=== PATIENT | male | born 1955 | race Caucasian/White ===

== ENCOUNTER 2020-04-22 11:33 | Outpatient (CLI) | payer MEDICARE ==
[~2020-04-22 11:33] MED LIST: CLIN-97 PO; MUPI22OI30 TP
[2020-04-22 11:59] LABS: BASOPHILS % (AUTO) 0.8 % (0-1); EOSINOPHILS # (AUTO) 0.1 X10'3 (0-0.9); EOSINOPHILS % (AUTO) 2.9 % (0-6); HEMATOCRIT 36.9 % (42.0-52.0); HEMOGLOBIN 12.5 g/dl (14.0-17.9); MEAN CORPUSCULAR HEMOGLOBIN 31.3 PG (27.0-31.0); MEAN CORPUSCULAR HGB CONC 33.8 g/dL (33.0-36.5); MEAN CORPUSCULAR VOLUME 92.8 FL (78-98); MEAN PLATELET VOLUME 6.7 FL (7.4-10.4); MONOCYTES # (AUTO) 0.8 X10'3 (0-0.9); MONOCYTES % (AUTO) 22.1 % (2-12); NEUTROPHILS # (AUTO) 1.8 X10'3 (1.8-7.7); NEUTROPHILS % (AUTO) 48.2 % (42-75); PLATELET COUNT 435 X10'3 (140-440); RED BLOOD COUNT 3.98 X10'6 (4.70-6.10); RED CELL DISTRIBUTION WIDTH 13.1 % (11.5-14.5); WHITE BLOOD COUNT 3.7 X10'3 (4.5-11.0)
[2020-04-22 12:13] LABS: ALANINE AMINOTRANSFERASE 53 U/L (12-78); ALBUMIN 3.8 G/DL (3.4-5.0); ALKALINE PHOSPHATASE 74 IU/L (46-116); ANION GAP 9 (8-16); ASPARTATE AMINO TRANSFERASE 37 U/L (10-37); BILIRUBIN,TOTAL 0.7 MG/DL (0.1-1.0); BLOOD UREA NITROGEN 10 MG/DL (7-18); BUN/CREATININE RATIO 16.1 (5.4-32.0); C-REACTIVE PROTEIN 0.18 MG/DL (0.0-0.5); CHLORIDE 104 MMOL/L (99-107); CREATININE 0.62 MG/DL (0.60-1.10); GLUCOSE 110 MG/DL (70-104); POTASSIUM 4.3 MMOL/L (3.5-5.1); SODIUM 139 MMOL/L (135-145); TOTAL PROTEIN 7.5 G/DL (6.4-8.2); VANCOMYCIN,TROUGH 17.4 UG/ML (6.0-14.0); eGFR > 90 ML/MIN
== END 2020-04-22 23:59 | disposition home or self-care (01) ==
LOC: LAB 11:33
PROVIDERS: ATTEND Internal Medicine
DX: I10 Essential (primary) hypertension (principal); Z51.81 Encounter for therapeutic drug level monitoring; Z79.899 Other long term (current) drug therapy
CPT/HCPCS: 80053; 80202; 85025; 85651; 86140

== ENCOUNTER 2020-09-30 12:30 | Outpatient (CLI) | payer MEDICARE ==
[~2020-09-30] VITALS: Ht 167.6 cm; Wt 72.6 kg
[2020-09-30] MEDS ORDERED: SOFO1TAB PO (14:25)
[2020-09-30] MEDS ORDERED: DOXY-224 PO (14:25)
[2020-09-30 14:27] LABS: BASOPHILS % (AUTO) 0.4 % (0-1); EOSINOPHILS # (AUTO) 0.2 X10'3 (0-0.9); LYMPHOCYTES # (AUTO) 1.1 X10'3 (1.1-4.8); LYMPHOCYTES % (AUTO) 16.2 % (21-51); MEAN CORPUSCULAR HEMOGLOBIN 32.9 PG (27.0-31.0); MEAN CORPUSCULAR HGB CONC 34.1 g/dL (33.0-36.5); MEAN CORPUSCULAR VOLUME 96.5 FL (78-98); MEAN PLATELET VOLUME 6.3 FL (7.4-10.4); MONOCYTES # (AUTO) 0.7 X10'3 (0-0.9); MONOCYTES % (AUTO) 9.3 % (2-12); NEUTROPHILS % (AUTO) 71.1 % (42-75); PRE OP HEMATOCRIT 40.7 % (42.0-52.0); PRE OP HEMOGLOBIN 13.9 g/dL (14.0-17.9); PRE OP PLATELET COUNT 279 X10'3 (140-440); RED BLOOD COUNT 4.21 X10'6 (4.70-6.10); RED CELL DISTRIBUTION WIDTH 13.6 % (11.5-14.5)
[2020-09-30 14:38] LABS: PRE OP PROTIME 10.2 SECONDS (9.0-12.0)
[2020-09-30 14:40] LABS: ALBUMIN 3.9 G/DL (3.4-5.0); ALBUMIN/GLOBULIN RATIO 1.2 (1.1-1.5); ALKALINE PHOSPHATASE 67 IU/L (46-116); BLOOD UREA NITROGEN 8 MG/DL (7-18); BUN/CREATININE RATIO 12.5 (5.4-32.0); CALCIUM 9.1 MG/DL (8.5-10.1); CHLORIDE 96 MMOL/L (99-107); CREATININE 0.64 MG/DL (0.60-1.10); PRE OP ANION GAP 12 (8-16); PRE OP AST 85 U/L (10-37); PRE OP BILIRUB, TOTAL 0.8 MG/DL (0.0-1.0); PRE OP GLUCOSE 99 MG/DL (70-104); PRE OP POTASSIUM 3.6 MMOL/L (3.4-5.1); PRE OP SODIUM 132 MMOL/L (135-145); TOTAL CARBON DIOXIDE 24.4 MMOL/L (24-32); TOTAL PROTEIN 7.1 G/DL (6.4-8.2); eGFR > 90 ML/MIN
[2020-09-30 14:42] LABS: PRE OP ALT 82 U/L (30-65)
[2020-09-30 14:44] LABS: CLARITY,URINE CLEAR (Clear); COLOR,URINE STRAW (Yellow); GLUCOSE, URINE NEGATIVE (Neg); KETONES,URINE NEGATIVE (Neg); LEUKOCYTE ESTERASE ,URINE NEGATIVE (Neg); NITRITES, URINE NEGATIVE (Neg); OCCULT BLOOD,URINE NEGATIVE (Neg); PROTEIN,URINE NEGATIVE (Neg); UROBILINOGEN,URINE 0.2 E.U/dL (0.2-1.0)
[2020-09-30 14:49] LABS: UA COLLECTION TYPE CLN CATCH MIDSTREAM
[2020-10-05] MEDS ORDERED: ringers solution, lacted 1,000 ML IV SCH (05:00)
[2020-10-05] MEDS ORDERED: famotidine 20mg tablet PO ONE (05:30)
[2020-10-05] MEDS ORDERED: cefazolin/dext.iso 2gm/100ml IV ONE (05:30)
[2020-10-11] MEDS ORDERED: PANT-47 PO (11:27)
[2020-10-11] MEDS ORDERED: FURO20TA4 PO (11:27)
== END 2020-09-30 23:59 | disposition home or self-care (01) ==
LOC: LAB 12:30 → EDSTATUS 10-05 13:15
PROVIDERS: ATTEND Surgery
DX: Z01.818 Encounter for other preprocedural examination (principal); K40.91 Unilateral inguinal hernia, without obstruction or gangrene, recurrent; Z20.822 Contact with and (suspected) exposure to COVID-19
CPT/HCPCS: 36415; 80053; 81003; 85025; 85610; 85730; 93005; U0003; U0005; J7120

== ENCOUNTER 2020-10-19 10:58 | Day surgery (SDC) | payer MEDICARE ==
[2020-10-18 11:08] LABS: BASOPHILS % (AUTO) 0.8 % (0-1); EOSINOPHILS # (AUTO) 0.2 X10'3 (0-0.9); EOSINOPHILS % (AUTO) 2.9 % (0-6); LYMPHOCYTES # (AUTO) 1.1 X10'3 (1.1-4.8); LYMPHOCYTES % (AUTO) 20.6 % (21-51); MEAN CORPUSCULAR HEMOGLOBIN 32.1 PG (27.0-31.0); MEAN CORPUSCULAR HGB CONC 33.9 g/dL (33.0-36.5); MEAN CORPUSCULAR VOLUME 94.6 FL (78-98); MEAN PLATELET VOLUME 6.1 FL (7.4-10.4); MONOCYTES # (AUTO) 0.6 X10'3 (0-0.9); MONOCYTES % (AUTO) 10.3 % (2-12); NEUTROPHILS # (AUTO) 3.6 X10'3 (1.8-7.7); NEUTROPHILS % (AUTO) 65.4 % (42-75); PRE OP HEMATOCRIT 27.5 % (42.0-52.0); PRE OP PLATELET COUNT 403 X10'3 (140-440); RED CELL DISTRIBUTION WIDTH 15.6 % (11.5-14.5)
[2020-10-18 11:11] LABS: PRE OP HEMOGLOBIN 9.3 g/dL (14.0-17.9)
[2020-10-18 11:20] LABS: ANION GAP 9 (8-16); BLOOD UREA NITROGEN 9 MG/DL (7-18); BUN/CREATININE RATIO 13.8 (5.4-32.0); CALCIUM 8.7 MG/DL (8.5-10.1); CHLORIDE 105 MMOL/L (99-107); CREATININE 0.65 MG/DL (0.60-1.10); GLUCOSE 107 MG/DL (70-104); POTASSIUM 4.1 MMOL/L (3.5-5.1); SODIUM 140 MMOL/L (135-145); eGFR > 90 ML/MIN
[~2020-10-19] VITALS: Ht 160 cm; Wt 70.3 kg
[2020-10-19] VITALS (12 sets, daily range): BP systolic 134–172; BP diastolic 68–86
[~2020-10-19 10:58] MED LIST changes: -CLIN-97 PO; +DOXY-224 PO; -MUPI22OI30 TP; +PANT40TA54 PO; +SOFO1TAB PO; +cefazolin/dext.iso 2gm/100ml IV ONE; +famotidine 20mg tablet PO ONE; +ringers solution, lacted 1,000 ML IV SCH
[2020-10-19] MEDS ORDERED: sevoflurane 250ml liquid IH ONE (14:00)
[2020-10-19] MEDS ORDERED: BUPIVAcaine/PF 2.5 mg/ml (0.25%) 30ml vial ONE (14:47)
[2020-10-19] MEDS ORDERED: fentaNYL /PF 50mcg/ml 5ml ampule ONE (14:54)
[2020-10-19] MEDS ORDERED: midazolam 1 mg/ML 2ml injection ONE (14:54)
[2020-10-19] MEDS ORDERED: neostigmine methylsulfate 1 MG/ML 10ml vial ONE (15:30)
[2020-10-19] MEDS ORDERED: glycopyrrolate 0.2mg/ml inj ONE (15:30)
[2020-10-19] MEDS ORDERED: propofol inj 20 ML IV ONE (15:30)
[2020-10-19] MEDS ORDERED: ondansetron/PF 4mg/2ml inj ONE (15:30)
[2020-10-19] MEDS ORDERED: LIDOcaine 2% (20mg/ml) 5ml vial ONE (15:30)
[2020-10-19] MEDS ORDERED: dexamethasone sod phosphate 4mg/ml inj. ONE (15:30)
[2020-10-19] MEDS ORDERED: rocuronium 10mg/ml inj IV ONE (15:30)
--- NOTE | 2020-10-19 16:03 | NUR ---
Received from OR via [facility], accompanied by Anesthesiologist DR HAJI and report given by Anesthesiologist. PT DROWSY, DENIES PAIN, ABDOMEN W/3 LAP SITES W/DERMABOND CDI. Addendum: 10/19/20 at 1905 by Tona Bowles RN Amended: Links added.
[2020-10-19] MEDS ORDERED: morphine 2 MG/ML inj. syringe IV PRN (16:15)
[2020-10-19] MEDS ORDERED: ondansetron/PF 4mg/2ml inj IV PRN (16:15)
[2020-10-19] MEDS ORDERED: meperidine/PF 25mg/ml syringe IV PRN ×3 (16:15)
[2020-10-19] MEDS ORDERED: morphine 4 MG/ML inj SYRINge IV PRN (16:15)
[2020-10-19] MEDS ORDERED: proCHLORperazine 10 MG/2 ml inj IV PRN (16:15)
[2020-10-19] MEDS ORDERED: ringers solution, lacted 1,000 ML IV SCH (16:15)
--- NOTE | 2020-10-19 18:03 | NUR ---
PT ABLE TO SAFELY AMBULATE W/HIS CANE, PAIN TOLERABLE, PT VOIDED. D/C INSTRUCTIONS GIVEN AND GONE OVER W/PT AND HIS FAMILY. PT D/CD TO HOME VIA W/C TO PRIVATE VEHICLE W/O INCIDENT. Addendum: 10/19/20 at 1918 by Tona Bowles RN Amended: Links added.
== END 2020-10-19 18:03 | disposition home or self-care (01) ==
LOC: PAS 10:58
PROVIDERS: ATTEND Surgery
DX: K40.90 Unilateral inguinal hernia, without obstruction or gangrene, not specified as recurrent (principal); E11.9 Type 2 diabetes mellitus without complications; K21.9 Gastro-esophageal reflux disease without esophagitis; M86.60 Other chronic osteomyelitis, unspecified site; F17.210 Nicotine dependence, cigarettes, uncomplicated; Z98.890 Other specified postprocedural states; Z20.822 Contact with and (suspected) exposure to COVID-19; Z79.899 Other long term (current) drug therapy; Z86.19 Personal history of other infectious and parasitic diseases; Z86.14 Personal history of Methicillin resistant Staphylococcus aureus infection
CPT/HCPCS: 36415; 49650; 80048; 82948; 85025; 87635; C1781; C9803; J1100; J2001; J2175; J2250; J2405; J2704; J2710; J3010; J3490; A4215; A4618; J7120

== ENCOUNTER 2020-10-25 10:19 | Emergency (ER) | payer MEDICARE ==
[~2020-10-25] VITALS: Ht 170.2 cm; Wt 70.5 kg
[~2020-10-25 10:19] MED LIST changes: -cefazolin/dext.iso 2gm/100ml IV ONE; -famotidine 20mg tablet PO ONE; -ringers solution, lacted 1,000 ML IV SCH
[2020-10-25 11:05] LABS: BASOPHILS % (AUTO) 0.7 % (0-1); EOSINOPHILS # (AUTO) 0.2 X10'3 (0-0.9); HEMATOCRIT 28.1 % (42.0-52.0); HEMOGLOBIN 9.3 g/dl (14.0-17.9); LYMPHOCYTES # (AUTO) 1.1 X10'3 (1.1-4.8); MEAN PLATELET VOLUME 5.9 FL (7.4-10.4); MONOCYTES # (AUTO) 0.4 X10'3 (0-0.9); NEUTROPHILS # (AUTO) 2.1 X10'3 (1.8-7.7); NEUTROPHILS % (AUTO) 54.3 % (42-75); PLATELET COUNT 344 X10'3 (140-440); RED BLOOD COUNT 2.99 X10'6 (4.70-6.10); RED CELL DISTRIBUTION WIDTH 16.1 % (11.5-14.5); WHITE BLOOD COUNT 3.9 X10'3 (4.5-11.0)
[2020-10-25 11:26] LABS: ALANINE AMINOTRANSFERASE 50 U/L (12-78); ALBUMIN 3.3 G/DL (3.4-5.0); ALKALINE PHOSPHATASE 74 IU/L (46-116); ANION GAP 10 (8-16); ASPARTATE AMINO TRANSFERASE 55 U/L (10-37); BILIRUBIN,TOTAL 0.4 MG/DL (0.1-1.0); BLOOD UREA NITROGEN 12 MG/DL (7-18); BUN/CREATININE RATIO 14.3 (5.4-32.0); CALCIUM 8.7 MG/DL (8.5-10.1); CHLORIDE 105 MMOL/L (99-107); CREATININE 0.84 MG/DL (0.60-1.10); GLUCOSE 119 MG/DL (70-104); SODIUM 140 MMOL/L (135-145); TOTAL CARBON DIOXIDE 24.7 MMOL/L (24-32); TOTAL PROTEIN 6.7 G/DL (6.4-8.2); eGFR > 90 ML/MIN
--- NOTE | 2020-10-25 12:15 | NUR ---
VASC AT BEDSIDE DOING EXAM
[2020-10-25 13:13] VITALS: BP 136/70
== END 2020-10-25 13:15 | disposition home or self-care (01) ==
LOC: ER 10:21
DX: M79.89 Other specified soft tissue disorders (principal); D64.9 Anemia, unspecified; E11.9 Type 2 diabetes mellitus without complications; K21.9 Gastro-esophageal reflux disease without esophagitis; G89.29 Other chronic pain; F11.90 Opioid use, unspecified, uncomplicated; M86.9 Osteomyelitis, unspecified; Z86.14 Personal history of Methicillin resistant Staphylococcus aureus infection; Z98.890 Other specified postprocedural states; Z72.89 Other problems related to lifestyle; Z79.2 Long term (current) use of antibiotics; Z79.899 Other long term (current) drug therapy
CPT/HCPCS: 36415; 71045; 80053; 83880; 84484; 85025; 93005; 93971; 99285

== ENCOUNTER 2020-11-16 12:50 | Emergency (ER) | payer MEDICARE ==
[~2020-11-16] VITALS: Ht 172.7 cm; Wt 67.8 kg
[2020-11-16 13:30] VITALS: BP 141/79
[2020-11-16 14:12] LABS: BASOPHILS # (AUTO) 0.1 X10'3 (0-0.2); BASOPHILS % (AUTO) 0.9 % (0-1); EOSINOPHILS # (AUTO) 0.2 X10'3 (0-0.9); EOSINOPHILS % (AUTO) 3.3 % (0-6); HEMATOCRIT 32.8 % (42.0-52.0); LYMPHOCYTES # (AUTO) 1.7 X10'3 (1.1-4.8); LYMPHOCYTES % (AUTO) 29.1 % (21-51); MEAN CORPUSCULAR HEMOGLOBIN 29.1 PG (27.0-31.0); MEAN CORPUSCULAR HGB CONC 33.5 g/dL (33.0-36.5); MEAN PLATELET VOLUME 6.6 FL (7.4-10.4); MONOCYTES # (AUTO) 0.5 X10'3 (0-0.9); MONOCYTES % (AUTO) 7.6 % (2-12); NEUTROPHILS # (AUTO) 3.5 X10'3 (1.8-7.7); NEUTROPHILS % (AUTO) 59.1 % (42-75); PLATELET COUNT 311 X10'3 (140-440); RED BLOOD COUNT 3.77 X10'6 (4.70-6.10); RED CELL DISTRIBUTION WIDTH 16.3 % (11.5-14.5)
[2020-11-16 14:33] LABS: ALANINE AMINOTRANSFERASE 41 U/L (12-78); ALBUMIN 3.8 G/DL (3.4-5.0); ALBUMIN/GLOBULIN RATIO 1.1 (1.1-1.5); ALKALINE PHOSPHATASE 76 IU/L (46-116); ANION GAP 10 (8-16); ASPARTATE AMINO TRANSFERASE 35 U/L (10-37); BILIRUBIN,TOTAL 0.3 MG/DL (0.1-1.0); BLOOD UREA NITROGEN 12 MG/DL (7-18); BUN/CREATININE RATIO 15.4 (5.4-32.0); CALCIUM 8.5 MG/DL (8.5-10.1); CHLORIDE 104 MMOL/L (99-107); CREATININE 0.78 MG/DL (0.60-1.10); GLUCOSE 101 MG/DL (70-104); POTASSIUM 3.7 MMOL/L (3.5-5.1); SODIUM 140 MMOL/L (135-145); TOTAL CARBON DIOXIDE 26.3 MMOL/L (24-32); TOTAL PROTEIN 7.4 G/DL (6.4-8.2); eGFR > 90 ML/MIN
[2020-11-16] MEDS ORDERED: PANT40TA54 PO (18:30)
[2020-11-16 18:38] LABS: BASOPHILS # (AUTO) 0.1 X10'3 (0-0.2); EOSINOPHILS # (AUTO) 0.1 X10'3 (0-0.9); HEMATOCRIT 33.4 % (42.0-52.0); LYMPHOCYTES # (AUTO) 1.3 X10'3 (1.1-4.8); LYMPHOCYTES % (AUTO) 19.6 % (21-51); MEAN CORPUSCULAR HEMOGLOBIN 28.4 PG (27.0-31.0); MEAN CORPUSCULAR HGB CONC 32.8 g/dL (33.0-36.5); MEAN CORPUSCULAR VOLUME 86.4 FL (78-98); MEAN PLATELET VOLUME 6.3 FL (7.4-10.4); MONOCYTES # (AUTO) 0.5 X10'3 (0-0.9); MONOCYTES % (AUTO) 7.3 % (2-12); NEUTROPHILS # (AUTO) 4.6 X10'3 (1.8-7.7); NEUTROPHILS % (AUTO) 70.1 % (42-75); PLATELET COUNT 311 X10'3 (140-440); RED BLOOD COUNT 3.87 X10'6 (4.70-6.10); RED CELL DISTRIBUTION WIDTH 16.2 % (11.5-14.5); WHITE BLOOD COUNT 6.6 X10'3 (4.5-11.0)
== END 2020-11-16 18:50 | disposition home or self-care (01) ==
LOC: ER 12:52
DX: R10.13 Epigastric pain (principal); K26.9 Duodenal ulcer, unspecified as acute or chronic, without hemorrhage or perforation; E11.9 Type 2 diabetes mellitus without complications; G89.29 Other chronic pain; Z71.6 Tobacco abuse counseling; Z86.14 Personal history of Methicillin resistant Staphylococcus aureus infection; Z86.19 Personal history of other infectious and parasitic diseases; Z98.890 Other specified postprocedural states; Z72.89 Other problems related to lifestyle; Z79.2 Long term (current) use of antibiotics; Z79.899 Other long term (current) drug therapy
CPT/HCPCS: 36415; 80053; 85025; 99283; 99406

== ENCOUNTER 2021-05-26 14:42 | Inpatient (IN) | payer MEDICARE ==
[~2021-05-26] VITALS: Ht 170.2 cm; Wt 62.7 kg
[2021-05-26 15:48] LABS: BASOPHILS % (AUTO) 0.7 % (0-1); EOSINOPHILS # (AUTO) 0.1 X10'3 (0-0.9); EOSINOPHILS % (AUTO) 0.9 % (0-6); HEMATOCRIT 26.3 % (42.0-52.0); HEMOGLOBIN 8.3 g/dl (14.0-17.9); LYMPHOCYTES # (AUTO) 1.2 X10'3 (1.1-4.8); LYMPHOCYTES % (AUTO) 21.2 % (21-51); MEAN CORPUSCULAR HEMOGLOBIN 23.1 PG (27.0-31.0); MEAN CORPUSCULAR HGB CONC 31.6 g/dL (33.0-36.5); MEAN CORPUSCULAR VOLUME 73.1 FL (78-98); MEAN PLATELET VOLUME 7.1 FL (7.4-10.4); MONOCYTES # (AUTO) 0.6 X10'3 (0-0.9); MONOCYTES % (AUTO) 10.9 % (2-12); NEUTROPHILS # (AUTO) 3.7 X10'3 (1.8-7.7); NEUTROPHILS % (AUTO) 66.3 % (42-75); PLATELET COUNT 341 X10'3 (140-440); RED CELL DISTRIBUTION WIDTH 21.1 % (11.5-14.5); WHITE BLOOD COUNT 5.6 X10'3 (4.5-11.0)
[2021-05-26 16:35] LABS: ALANINE AMINOTRANSFERASE 84 U/L (12-78); ALBUMIN 3.7 G/DL (3.4-5.0); ALBUMIN/GLOBULIN RATIO 1.2 (1.1-1.5); ALKALINE PHOSPHATASE 118 IU/L (46-116); ANION GAP 14 (8-16); ASPARTATE AMINO TRANSFERASE 103 U/L (10-37); BILIRUBIN,TOTAL 0.5 MG/DL (0.1-1.0); BLOOD UREA NITROGEN 18 MG/DL (7-18); BUN/CREATININE RATIO 19.8 (5.4-32.0); CALCIUM 8.4 MG/DL (8.5-10.1); CHLORIDE 91 MMOL/L (99-107); CREATININE 0.91 MG/DL (0.60-1.10); GLUCOSE 139 MG/DL (70-104); POTASSIUM 4.1 MMOL/L (3.5-5.1); SODIUM 125 MMOL/L (135-145); TOTAL CARBON DIOXIDE 19.7 MMOL/L (24-32); TOTAL PROTEIN 6.9 G/DL (6.4-8.2); eGFR 84 ML/MIN
[2021-05-26 16:39] LABS: PLATELET ESTIMATE NORMAL; POLYCHROMASIA 1+
[2021-05-26 16:40] LABS: ANISOCYTOSIS 3+; BURR CELLS 1+; ELLIPTOCYTES 1+; HYPOCHROMASIA 1+; MICROCYTOSIS 1+; SCHISTOCYTES FEW; TARGET CELLS 1+
[2021-05-26] MEDS ORDERED: furosemide 10 MG/1 ML 10ml inj IV ONE (16:55)
[2021-05-26] MEDS ORDERED: aspirin 81mg tab.chew PO ONE (16:55)
[2021-05-26 16:58] LABS: D-DIMER 2.15 MG/L FEU (0-0.50)
[2021-05-26] MEDS ORDERED: PANT-47 PO (17:01)
[2021-05-26] MEDS ORDERED: magnesium 4gm in 100ml NS 100 ML IV PRN (17:40)
[2021-05-26] MEDS ORDERED: potassium CL 10mEq/100ml bag 100 ML IV PRN (17:40)
[2021-05-26] MEDS ORDERED: ondansetron/PF 4mg/2ml inj IV PRN (17:40)
[2021-05-26] MEDS ORDERED: acetaminophen 325mg tablet PO PRN ×2 (17:40)
[2021-05-26] MEDS ORDERED: potassium Cl 20 mEq SR tablet PO PRN ×2 (17:40)
[2021-05-26] MEDS ORDERED: magnesium Cl slow-release 64mg tablet PO PRN (17:40)
[2021-05-26] MEDS ORDERED: HYDROcodone/acetaminophen 5mg/325mg tablet PO PRN (17:40)
[2021-05-26] MEDS ORDERED: PERFLUTREN PROTEIN-A MICROSPHR (Optison) 0.22 MG/ML 3ML VIAL IV ONE (17:40)
[2021-05-26] MEDS ORDERED: morphine 2 MG/ML inj. syringe IV PRN ×2 (17:40)
[2021-05-26] MEDS ORDERED: magnesium 2GM in 50ml NS 50 ML IV PRN (17:40)
[2021-05-26] MEDS ORDERED: benzonatate 100mg capsule PO PRN (17:40)
[2021-05-26] MEDS ORDERED: mag hydrox/Alum hydrox/simeth 30ml oral suspension PO PRN (17:40)
[2021-05-26] MEDS ORDERED: magnesium hydroxide 30ml (MOM) UD suspension PO PRN (17:40)
[2021-05-26] MEDS: nicotine 14mg patch - 24hr TD SCH (17:55)
[2021-05-26] MEDS: K and/or MAG REPLACEMENT MC SCH (20:00)
[2021-05-26 20:24] LABS: HEMOGLOBIN A1C 5.7 % (4.5-6.2)
--- NOTE | 2021-05-26 20:28 | NUR ---
MEDICATION FOR CT SCAN
[2021-05-26] MEDS: furosemide 40mg/4ml inj IV SCH (20:32)
[2021-05-26 22:00] VITALS: BP 149/93
--- NOTE | 2021-05-26 23:59 | NUR ---
notified of 32 beats of Vtach
[2021-05-27] MEDS ORDERED: furosemide 40mg/4ml inj IV ONE (00:10)
[2021-05-27] MEDS: heparin, porcine 5000 units/ml vial SQ SCH ×3 (00:45→16:00)
[2021-05-27 02:00] VITALS: BP 120/81
[2021-05-27 02:38] LABS: ALANINE AMINOTRANSFERASE 85 U/L (12-78); ALBUMIN 3.6 G/DL (3.4-5.0); ALBUMIN/GLOBULIN RATIO 1.1 (1.1-1.5); ALKALINE PHOSPHATASE 115 IU/L (46-116); ANION GAP 13 (8-16); ASPARTATE AMINO TRANSFERASE 97 U/L (10-37); BILIRUBIN,TOTAL 0.6 MG/DL (0.1-1.0); BLOOD UREA NITROGEN 23 MG/DL (7-18); BUN/CREATININE RATIO 27.4 (5.4-32.0); CALCIUM 8.5 MG/DL (8.5-10.1); CHLORIDE 94 MMOL/L (99-107); CREATININE 0.84 MG/DL (0.60-1.10); GLUCOSE 90 MG/DL (70-104); SODIUM 130 MMOL/L (135-145); TOTAL CARBON DIOXIDE 23.1 MMOL/L (24-32); TOTAL PROTEIN 6.8 G/DL (6.4-8.2); eGFR > 90 ML/MIN
--- NOTE | 2021-05-27 06:54 | NUR ---
Patient in room PCU 3028. I have received report from Jacquelyn SEVILLA and had the opportunity to ask questions and assume patient care.
[2021-05-27 06:57] LABS: BASOPHILS % (AUTO) 0.8 % (0-1); EOSINOPHILS # (AUTO) 0.1 X10'3 (0-0.9); EOSINOPHILS % (AUTO) 1.5 % (0-6); HEMATOCRIT 28.2 % (42.0-52.0); HEMOGLOBIN 8.9 g/dl (14.0-17.9); LYMPHOCYTES % (AUTO) 31.3 % (21-51); MEAN CORPUSCULAR HEMOGLOBIN 22.5 PG (27.0-31.0); MEAN CORPUSCULAR HGB CONC 31.7 g/dL (33.0-36.5); MEAN PLATELET VOLUME 7.4 FL (7.4-10.4); MONOCYTES # (AUTO) 0.9 X10'3 (0-0.9); MONOCYTES % (AUTO) 13.6 % (2-12); NEUTROPHILS # (AUTO) 3.4 X10'3 (1.8-7.7); NEUTROPHILS % (AUTO) 52.8 % (42-75); PLATELET COUNT 362 X10'3 (140-440); RED BLOOD COUNT 3.98 X10'6 (4.70-6.10); RED CELL DISTRIBUTION WIDTH 21.3 % (11.5-14.5); WHITE BLOOD COUNT 6.5 X10'3 (4.5-11.0)
[2021-05-27 07:22] LABS: PHOSPHORUS 3.8 MG/DL (2.3-4.5)
[2021-05-27] MEDS: K and/or MAG REPLACEMENT MC SCH ×2 (08:00→20:00)
[2021-05-27] MEDS ORDERED: lisinopril 5mg tablet PO SCH (08:00)
[2021-05-27 08:01] LABS: ANISOCYTOSIS 3+; HYPOCHROMASIA 1+; MICROCYTOSIS 1+; PLATELET ESTIMATE NORMAL; POIKILOCYTOSIS 1+
[2021-05-27] MEDS: furosemide 40mg/4ml inj IV SCH ×2 (08:27→20:15)
[2021-05-27] MEDS: pantoprazole 40mg Tablet.DR PO SCH (08:28)
[2021-05-27] MEDS: carVEDilol 3.125mg tablet PO SCH ×2 (08:28→20:15)
[2021-05-27] MEDS: nicotine 14mg patch - 24hr TD SCH (08:34)
[2021-05-27] MEDS ORDERED: aminophylline 250mg/10ml inj. IV PRN (09:40)
[2021-05-27] MEDS ORDERED: nitroGLYCERIN 0.4mg SUBLingual tab SL PRN (09:40)
[2021-05-27] MEDS ORDERED: regadenoson 0.4mg/5ml syringe IV ONE (09:40)
[2021-05-27] MEDS ORDERED: metoprolol tartrate 1mg/ml inj IV PRN (09:40)
--- NOTE | 2021-05-27 10:45 | NUR ---
and Nurse at bedside with patient. ordered Neda scan tomorrow AM due to pt eating and consuming coffee. New orders, NPO at midnight, Neda scan in Am, Wound consult, Wound culture to wound on lower back to r/t any infectious processes. Dr. White ordered a PTT, PT level today. We will continue to monitor.
--- NOTE | 2021-05-27 11:00 | NUR ---
and nurse at bedside with joanna
--- NOTE | 2021-05-27 15:47 | NUR ---
Wound culture collected and sent to lab.
[2021-05-27 16:32] LABS: APTT 28 SECONDS (22-32)
[2021-05-27 18:00] VITALS: BP 118/67
--- NOTE | 2021-05-27 19:06 | NUR ---
Problems reprioritized. Patient report given, questions answered & plan of care reviewed with Octavia SEVILLA.
--- NOTE | 2021-05-27 19:16 | NUR ---
Patient in room PCU 3028. I have received report from Lidia SEVILLA and had the opportunity to ask questions and assume patient care.
[2021-05-27] MEDS: HYDROcodone/acetaminophen 10/325mg tab PO PRN (20:16)
[2021-05-27] MEDS: CefTRIAXone 2gm/D5W 50ml BAG 50 ML IV SCH (20:17)
[2021-05-27 22:00] VITALS: BP 96/52
[2021-05-28] VITALS (8 sets, daily range): BP systolic 111–126; BP diastolic 59–69
[2021-05-28] MEDS: heparin, porcine 5000 units/ml vial SQ SCH
[2021-05-28] MEDS: HYDROcodone/acetaminophen 10/325mg tab PO PRN (05:55)
[2021-05-28] MEDS: pantoprazole 40mg Tablet.DR PO SCH (07:38)
[2021-05-28] MEDS: CefTRIAXone 2gm/D5W 50ml BAG 50 ML IV SCH (07:38)
[2021-05-28 07:53] LABS: BASOPHILS # (AUTO) 0.1 X10'3 (0-0.2); BASOPHILS % (AUTO) 0.9 % (0-1); EOSINOPHILS # (AUTO) 0.2 X10'3 (0-0.9); EOSINOPHILS % (AUTO) 3.3 % (0-6); HEMATOCRIT 25.6 % (42.0-52.0); LYMPHOCYTES # (AUTO) 1.5 X10'3 (1.1-4.8); LYMPHOCYTES % (AUTO) 25.7 % (21-51); MEAN CORPUSCULAR HEMOGLOBIN 22.3 PG (27.0-31.0); MEAN CORPUSCULAR HGB CONC 31.3 g/dL (33.0-36.5); MEAN CORPUSCULAR VOLUME 71.4 FL (78-98); MEAN PLATELET VOLUME 7.2 FL (7.4-10.4); MONOCYTES # (AUTO) 0.7 X10'3 (0-0.9); MONOCYTES % (AUTO) 12.3 % (2-12); NEUTROPHILS # (AUTO) 3.3 X10'3 (1.8-7.7); NEUTROPHILS % (AUTO) 57.8 % (42-75); PLATELET COUNT 309 X10'3 (140-440); RED BLOOD COUNT 3.59 X10'6 (4.70-6.10); RED CELL DISTRIBUTION WIDTH 21.4 % (11.5-14.5); WHITE BLOOD COUNT 5.8 X10'3 (4.5-11.0)
[2021-05-28] MEDS: K and/or MAG REPLACEMENT MC SCH (08:00)
[2021-05-28 08:14] LABS: ALANINE AMINOTRANSFERASE 86 U/L (12-78); ALBUMIN 3.5 G/DL (3.4-5.0); ALBUMIN/GLOBULIN RATIO 1.1 (1.1-1.5); ALKALINE PHOSPHATASE 108 IU/L (46-116); ANION GAP 10 (8-16); ASPARTATE AMINO TRANSFERASE 63 U/L (10-37); BILIRUBIN,TOTAL 0.5 MG/DL (0.1-1.0); BLOOD UREA NITROGEN 34 MG/DL (7-18); BUN/CREATININE RATIO 39.1 (5.4-32.0); CALCIUM 8.9 MG/DL (8.5-10.1); CHLORIDE 98 MMOL/L (99-107); CREATININE 0.87 MG/DL (0.60-1.10); GLUCOSE 86 MG/DL (70-104); POTASSIUM 3.7 MMOL/L (3.5-5.1); SODIUM 133 MMOL/L (135-145); TOTAL CARBON DIOXIDE 24.8 MMOL/L (24-32); TOTAL PROTEIN 6.6 G/DL (6.4-8.2); eGFR 88 ML/MIN
--- NOTE | 2021-05-28 08:35 | NUR ---
Problems reprioritized. Patient report given, questions answered & plan of care reviewed with Ruth SEVILLA.
[2021-05-28] MEDS ORDERED: CEFD300C3 PO (13:11)
[2021-05-28] MEDS ORDERED: FURO-150 PO (13:11)
[2021-05-28] MEDS ORDERED: NICO-631 TD (13:11)
[2021-05-28] MEDS ORDERED: GABA-530 PO (13:11)
[2021-05-28] MEDS ORDERED: LISI5TAB22 PO (13:11)
[2021-05-28] MEDS ORDERED: SPIR25TA5 PO (13:11)
[2021-05-28] MEDS ORDERED: COR3.125T PO (13:11)
== END 2021-05-28 16:42 | disposition home or self-care (01) | DRG 193 ==
LOC: ER 14:43 → ED HOLD 17:51 → EDBEDREQ 20:45 → PCU 3S 21:24
PROVIDERS: ADMIT Internal Medicine; ATTEND Internal Medicine
PROC: B32T1ZZ Computerized Tomography (CT Scan) of Left Pulmonary Artery using Low Osmolar Contrast (ICD-10-PCS; 2021-05-26)
PROC: B3201ZZ Computerized Tomography (CT Scan) of Thoracic Aorta using Low Osmolar Contrast (ICD-10-PCS; 2021-05-26)
PROC: B32S1ZZ Computerized Tomography (CT Scan) of Right Pulmonary Artery using Low Osmolar Contrast (ICD-10-PCS; 2021-05-26)
PROC: 4A02XM4 Measurement of Cardiac Total Activity, External Approach (ICD-10-PCS; principal; 2021-05-28)
PROC: 3E073KZ Introduction of Other Diagnostic Substance into Coronary Artery, Percutaneous Approach (ICD-10-PCS; 2021-05-28)
DX: J18.9 Pneumonia, unspecified organism (principal); I50.21 Acute systolic (congestive) heart failure; E87.1 Hypo-osmolality and hyponatremia; I42.9 Cardiomyopathy, unspecified; I47.2 Ventricular tachycardia; D64.9 Anemia, unspecified; I50.82 Biventricular heart failure; B19.20 Unspecified viral hepatitis C without hepatic coma; R26.2 Difficulty in walking, not elsewhere classified; M54.9 Dorsalgia, unspecified; Z20.822 Contact with and (suspected) exposure to COVID-19; R55 Syncope and collapse; R20.0 Anesthesia of skin; R74.01 Elevation of levels of liver transaminase levels; R79.89 Other specified abnormal findings of blood chemistry; S31.000A Unspecified open wound of lower back and pelvis without penetration into retroperitoneum, initial encounter; F17.210 Nicotine dependence, cigarettes, uncomplicated; E11.9 Type 2 diabetes mellitus without complications; G89.29 Other chronic pain; X58.XXXA Exposure to other specified factors, initial encounter; I25.2 Old myocardial infarction; Z86.14 Personal history of Methicillin resistant Staphylococcus aureus infection; Z86.711 Personal history of pulmonary embolism; Z88.0 Allergy status to penicillin; Z88.2 Allergy status to sulfonamides; Z88.5 Allergy status to narcotic agent; Z72.89 Other problems related to lifestyle; Z71.6 Tobacco abuse counseling; Y93.89 Activity, other specified; Y92.89 Other specified places as the place of occurrence of the external cause; Y99.8 Other external cause status
CPT/HCPCS: 36415; 71045; 71275; 72100; 78452; 80053; 82948; 83036; 83605; 83735; 83880; 84100; 84145; 84484; 85008; 85025; 85379; 85610; 85730; 87040; 87070; 87075; 87077; 87081; 87186; 87635; 93005; 93017; 93306; 99285; A9500; G0378; J0696; J1644; J1940; J2785

== ENCOUNTER 2021-06-04 16:33 | Emergency (ER) | payer MEDICARE ==
[~2021-06-04] VITALS: Ht 170.2 cm; Wt 69.5 kg
[~2021-06-04 16:33] MED LIST changes: +CEFD300C3 PO; +COR3.125T PO; -DOXY-224 PO; +FURO-150 PO; +GABA-530 PO; +LISI5TAB22 PO; +NICO-631 TD; +PANT-47 PO; -PANT40TA54 PO; -SOFO1TAB PO; +SPIR25TA5 PO
[2021-06-04 17:02] VITALS: BP 150/47
[2021-06-04 18:16] LABS: BASOPHILS # (AUTO) 0.1 X10'3 (0-0.2); BASOPHILS % (AUTO) 0.9 % (0-1); EOSINOPHILS # (AUTO) 0.1 X10'3 (0-0.9); EOSINOPHILS % (AUTO) 2.1 % (0-6); HEMATOCRIT 24.1 % (42.0-52.0); HEMOGLOBIN 7.4 g/dl (14.0-17.9); LYMPHOCYTES # (AUTO) 1.2 X10'3 (1.1-4.8); LYMPHOCYTES % (AUTO) 20.1 % (21-51); MEAN CORPUSCULAR HEMOGLOBIN 21.9 PG (27.0-31.0); MEAN CORPUSCULAR HGB CONC 30.8 g/dL (33.0-36.5); MEAN PLATELET VOLUME 7.2 FL (7.4-10.4); MONOCYTES # (AUTO) 0.9 X10'3 (0-0.9); MONOCYTES % (AUTO) 15.1 % (2-12); NEUTROPHILS # (AUTO) 3.6 X10'3 (1.8-7.7); NEUTROPHILS % (AUTO) 61.8 % (42-75); PLATELET COUNT 340 X10'3 (140-440); RED CELL DISTRIBUTION WIDTH 20.9 % (11.5-14.5); WHITE BLOOD COUNT 5.8 X10'3 (4.5-11.0)
[2021-06-04 18:32] LABS: ALANINE AMINOTRANSFERASE 44 U/L (12-78); ALBUMIN 3.6 G/DL (3.4-5.0); ALBUMIN/GLOBULIN RATIO 1.2 (1.1-1.5); ALKALINE PHOSPHATASE 107 IU/L (46-116); ANION GAP 11 (8-16); ASPARTATE AMINO TRANSFERASE 33 U/L (10-37); BILIRUBIN,TOTAL 0.4 MG/DL (0.1-1.0); BLOOD UREA NITROGEN 22 MG/DL (7-18); BUN/CREATININE RATIO 24.2 (5.4-32.0); CALCIUM 8.6 MG/DL (8.5-10.1); CHLORIDE 106 MMOL/L (99-107); CREATININE 0.91 MG/DL (0.60-1.10); GLUCOSE 92 MG/DL (70-104); POTASSIUM 4.2 MMOL/L (3.5-5.1); SODIUM 141 MMOL/L (135-145); TOTAL CARBON DIOXIDE 24.3 MMOL/L (24-32); TOTAL PROTEIN 6.7 G/DL (6.4-8.2); eGFR 84 ML/MIN
[2021-06-04 19:26] LABS: TOTAL CELLS COUNTED 100
[2021-06-04 19:27] LABS: ANISOCYTOSIS 3+; MICROCYTOSIS 1+; PLATELET ESTIMATE NORMAL
[2021-06-04 19:28] LABS: ROULEAUX 1+; TEAR DROP CELLS FEW
[2021-06-04 19:29] LABS: ELLIPTOCYTES FEW; POLYCHROMASIA FEW
[2021-06-04] MEDS ORDERED: POTA-192 PO (20:10)
[2021-06-04] MEDS ORDERED: FURO40TA4 PO (20:10)
== END 2021-06-04 20:34 | disposition home or self-care (01) ==
LOC: ER 16:34
DX: R60.0 Localized edema (principal); R06.02 Shortness of breath; R42 Dizziness and giddiness; I50.9 Heart failure, unspecified; E11.9 Type 2 diabetes mellitus without complications; G89.29 Other chronic pain; F11.90 Opioid use, unspecified, uncomplicated; Z86.14 Personal history of Methicillin resistant Staphylococcus aureus infection; Z86.19 Personal history of other infectious and parasitic diseases; Z87.01 Personal history of pneumonia (recurrent); Z72.89 Other problems related to lifestyle; Z79.899 Other long term (current) drug therapy
CPT/HCPCS: 80053; 83880; 85007; 85025; 93005; 99284